=== PATIENT | female | born 1985 | race Native Hawaiian/Other Pacific Islander ===

== ENCOUNTER 2018-01-26 11:49 | Emergency (ER) | payer OTHER ==
[2018-01-26 12:11] VITALS: BMI 31.8
[2018-01-26 13:14] LABS: SQUAMOUS EPITHIAL < 1 /hpf (0-5); URINE BACTERIA RARE (<OCC); URINE BILIRUBIN NEGATIVE (NEGATIVE); URINE BLOOD NEGATIVE (NEGATIVE); URINE CLARITY CLOUDY (Clear); URINE COLOR YELLOW (YELLOW); URINE GLUCOSE (UA) 150 mg/dL (Normal); URINE LEUKOCYTE ESTERASE NEG Leu/uL (Negative); URINE PROTEIN NEGATIVE (NEGATIVE); URINE UROBILINOGEN 0.2-1.0 mg/dL (0.2-1.0)
--- NOTE | 2018-01-26 14:05 | OBDCSUM ---
Datetime: 01/26/2018 12:43 Discharged to, Provider: Home Follow up at, Provider: DR. Bustos Disch Instr Activity: Normal activity Disch Instr Diet: Regular Discharge Time: 01/26/2018 12:45 Follow up in weeks, Provider: 3 weeks Disch Referrals: None Discharge Diagnosis Prov Other: no evidence of vaginal bleeding
--- NOTE | 2018-01-26 14:05 | OBHP ---
Datetime: 01/26/2018 12:30 IP Adm Impression: , intrauterine ; No Active Labor; Intact Membranes IP Admit Plan: Discharge home Admit Comment, IP Provider: [id number] IUP at 31w noticed blood when she wiped after uriating/unsure i f it was from vagina. No pain. No meds taken. PMH: denies PSH denies NKA POBH: PGYNH: no STD PSoH: denies smoking ETOH drugs A: IUP at 31w no evidence of VB PLAN: check UA ADD: at 14:00pm, I rev;d labs, called pt...no need to take cephalexin..but shcedule 3h GTT for glu cosuria Abdomen - PN: Normal Thyroid - PN: Normal Neurologic - PN: Normal HEENT - PN: Normal General - PN: Normal FHR - Baseline A Provider: 150 Membranes, Provider: Intact Contraction Comments Provider: 0 Pool Provider: Negative IP Hx Assessment: The History has been Reviewed and is Current EGA AdmitDate IP: 31.6 IP Chief Complaint: Vaginal bleeding NICHD Variability Prov Fetus A: Moderate 6-25bpm NICHD Accel Fetus A IP Provider: 15X15 FHR Category Provider Fetus A: Category I Dilatation, Provider: 0 Genitourinary Exam: Normal
[2018-01-26 18:06] VITALS: BP 113/70; PULSE 82; O2SAT 99
== END 2018-01-26 13:00 | disposition home or self-care (01) ==
LOC: H.EROB2 11:49 → H.EROB 12:10 → H.EROB2 13:00
DX: O46.93 Antepartum hemorrhage, unspecified, third trimester (principal); Z3A.31 31 weeks gestation of pregnancy

== ENCOUNTER 2018-03-23 09:27 | Inpatient (IN) | payer OTHER ==
--- NOTE | 2018-03-23 10:49 | OBADHP ---
Datetime: 03/23/2018 10:15 IP Chief Complaint Other: blood from vagina Admit Comment, IP Provider: 33yo IUP at 39w GDMA1 (noncompliant) c/o episode VB this morning. some CTX pain. She called yesterday to the office and was told to ocme in for possbie ROM. She did n ot come in. She didn not hav continued leaking - more described mucous more than liquid Prental care: CP Dr Bustos - GDMA1 PMH: denies PSH: denies NKA PsoH: lives with POBGYNH: G1; no STD A: Iup at 39w unfavorable cervix GDMA1 PLAN: Discussoin with pt and her about condition, IOL, meds, pain management, labor,delive ry and care...they understand and agree to start with Cytotec Pelvic Type - PN: Adequate Extremities - PN: Normal Abdomen - PN: Normal Back - PN: Normal Breast - PN: Not Done Lungs - PN: Normal Heart - PN: Normal Thyroid - PN: Normal Neurologic - PN: Normal HEENT - PN: Normal General - PN: Normal Presentation-Admit: Vertex FHR - Baseline A Provider: 150 Membranes, Provider: Intact Pool Provider: Negative IP Hx Assessment: The History has been Reviewed and is Current IP Chief Complaint: Uterine contractions; Suspected ruptured membranes; Vaginal bleeding NICHD Variability Prov Fetus A: Moderate 6-25bpm NICHD Accel Fetus A IP Provider: 15X15 FHR Category Provider Fetus A: Category I NICHD Decel Fetus A IP Provider: None Dilatation, Provider: 1-2 Effacement, Provider: 50 Station, Provider: -2 Genitourinary Exam: Normal DTRs - PN: Normal EGA AdmitDate IP: 39.6 IP Adm Impression: Term, intrauterine ; No Active Labor; Intact Membranes IP Admit Plan: Admit to unit; Initiate labor induction protocol Datetime: 01/26/2018 12:30 Contraction Comments Provider: 0
[2018-03-23 11:37] LABS: BASO % 0.4 % (0.0-2.0); EOS % 0.5 % (0.0-4.0); HEMOGLOBIN 11.8 g/dL (12.0-16.0); LYMPH # 1.4 K/uL (1.0-4.3); LYMPH % 15.9 % (20.0-40.0); MEAN CELL VOLUME 83.7 fl (81.0-99.0); MEAN CORPUSCULAR HEMOGLOBIN 27.8 pg (27.0-31.0); MEAN CORPUSCULAR HGB CONC 33.2 g/dL (33.0-37.0); MEAN PLATELET VOLUME 8.8 fl (7.2-11.7); MONO # 0.6 K/uL (0.0-0.8); MONO % 6.3 % (0.0-10.0); NEUT % 76.9 % (50.0-75.0); RBC 4.23 Mil/uL (3.80-5.20); RED CELL DISTRIBUTION WIDTH 14.8 % (11.5-14.5); WHITE BLOOD COUNT 9.1 K/uL (4.8-10.8)
[2018-03-23] MEDS ORDERED: Lactated Ringer's 1,000 ML IV SCH (19:45)
[2018-03-23] MEDS: Lactated Ringer's 1,000 ML IV SCH ×2 (19:50→20:55)
[2018-03-23] MEDS ORDERED: Fentanyl/Bupivacaine HCl 250 ML EPI ONE (20:59)
--- NOTE | 2018-03-23 23:52 | OBPN ---
Datetime: 03/23/2018 23:45 IP Progress Impression: Normal progression of labor; Reactive non-stress test IP Informed Consent Obtain: Vaginal Delivery; Risks, Benefits and Alternatives Discussed IP Progress Plan: Augmentation; Anticipate Vaginal Delivery Pool Provider: Negative Membranes, Provider: Intact Contraction Comments Provider: 2-4m FHR - Baseline A Provider: 145 IP Progress Note Comment: Notified earlier that she was 4-5cm after she c/o pain and wanted epidural She feels much better now - 'more peaceful' A: Active phase of labor - slow pogress from irregular CTX S/P epidural GDMA1 controlled PLAN: Discussion with pt...will start Pitocin augmentation Vital Signs Provider: Reviewed; Within Normal Limits NICHD Accel Fetus A IP Provider: 15X15 FHR Category Provider Fetus A: Category I NICHD Variability Prov Fetus A: Moderate 6-25bpm Dilatation, Provider: 5-6 Effacement, Provider: 80 Station, Provider: -1 NICHD Decel Fetus A IP Provider: None Datetime: 03/23/2018 10:15 Presentation-Admit: Vertex
[2018-03-24] MEDS ORDERED: Lidocaine 2% Inj (20ml) ONE (05:44)
[2018-03-24] MEDS ORDERED: Benzocaine/Menthol SPRAY TOP PRN ×2 (09:03→11:12)
[2018-03-24] MEDS ORDERED: Multivitamin With Minerals Tab PO SCH (09:15)
[2018-03-24] MEDS ORDERED: Oxytocin 30 units/LR 500ML 30 U/500 ML BAG IV ONE (09:30)
[2018-03-25 06:20] LABS: BASO % 0.2 % (0.0-2.0); EOS % 0.3 % (0.0-4.0); HEMOGLOBIN 9.2 g/dL (12.0-16.0); LYMPH # 1.9 K/uL (1.0-4.3); LYMPH % 13.5 % (20.0-40.0); MEAN CELL VOLUME 84.2 fl (81.0-99.0); MEAN CORPUSCULAR HEMOGLOBIN 26.8 pg (27.0-31.0); MEAN CORPUSCULAR HGB CONC 31.8 g/dL (33.0-37.0); MEAN PLATELET VOLUME 8.4 fl (7.2-11.7); MONO # 0.8 K/uL (0.0-0.8); MONO % 5.8 % (0.0-10.0); NEUT # 11.1 K/uL (1.8-7.0); NEUT % 80.2 % (50.0-75.0); RBC 3.42 Mil/uL (3.80-5.20); RED CELL DISTRIBUTION WIDTH 15.5 % (11.5-14.5); WHITE BLOOD COUNT 13.9 K/uL (4.8-10.8)
[2018-03-25] MEDS: Multivitamin With Minerals Tab PO SCH (08:27)
[2018-03-26] MEDS: Multivitamin With Minerals Tab PO SCH (08:47)
[2018-03-26] MEDS ORDERED: Lansinoh for Breast Feeding Mothers TP ONE (09:09)
--- NOTE | 2018-03-26 10:00 | OBDCSUM ---
Datetime: 03/26/2018 09:59 Discharged to, Provider: Home Follow up at, Provider: OB Disch Instr Activity: Normal activity Disch Instr Diet: Regular Discharge Instructions, Provider: Routine instructions given Discharge Diagnosis, Provider: Term Delivered Discharge Time: 03/26/2018 09:59 Follow up in weeks, Provider: 6 wks Disch Referrals: None Contraception discussed, Prov: Yes
--- NOTE | 2018-03-26 10:00 | OBPPN ---
Datetime: 03/26/2018 09:58 PP Pain Prov: Within normal limits PP Nausea Prov: Denies PP Flatus Prov: Yes PP Breasts Prov: Normal PP Heart Prov: Normal PP Lungs Prov: Normal PP Abdomen/Uterus Prov: Normal PP Lochia Prov: Normal PP Vulva/Perineum Prov: Normal PP CVA Tenderness Prov: Normal PP Extremities Prov: Normal PP Comments Phys Exam Prov: Fundus firm under umbilicus PP Impression Prov: Normal progression PP Plan Prov: Continue present management PP Progress Note Prov: Patient denies CP, no SOB, no N/V, tolerating PO diet, ambulating/voiding wel l, mild lochia A/P PPD #2 1. discharge pt home 2. Discharge instructions reviewed IP PP Procedures: None Vital Signs Provider PP: Reviewed; Within Normal Limits
--- NOTE | 2018-03-26 10:39 | OBDS ---
DELIVERY PERSONNEL Delivery Doctor: Isa Bustos DO Die Keeper: Amy Goldstein RN Anesthesiologist: Leeann Garcia MD Resident: MATERNAL INFORMATION Delivery Anesthesia: Local; Epidural Medications in Delivery: PITOCIN 30 UNITS IN LR Estimated Blood Loss (ml): 200 Placenta Cultured: No Maternal Complications: Maternal Fever Provider Comments: Over intact perineum, of live male . was crying spontaneously. Cord was clamped and cut by father. was placed on mother's chest for skin to skin. Peds was in attendance ) thin mec/GDMA/Temp reported 100.0 andfetal tachy before delivery ). Placenta was de liveed intact spontaneously. EBL 200cc she remained stable LABOR SUMMARY EDC: 03/24/2018 00:00 No. Babies in Womb: 1 Attempted: No Labor Anesthesia: Epidural LABOR INFORMATION Onset of Labor: 03/23/2018 23:40 Complete Dilatation: 03/24/2018 05:35 Cervical Ripening Agents: Cytotec @ (Annotations: 50 mcg given po as ordered) Oxytocin: Augmentation Group B Beta Strep: Negative Steroids Given: None Reason Steroids Not Administered: Not Applicable MEMBRANES Membranes Rupture Method: Spontaneous Rupture of Membranes: 03/24/2018 04:25 Length of Rupture (hrs): 2.53 Amniotic Fluid Color: Light Meconium Amniotic Fluid Amount: Moderate Amniotic Fluid Odor: Normal STAGES OF LABOR Stage 1 hrs: 5 Stage 1 min: 55 Stage 2 hrs: 1 Stage 2 min: 22 Stage 3 hrs: 0 Stage 3 min: 17 Total Time in Labor hrs: 7 Total Time in Labor min: 34 VAGINAL DELIVERY Episiotomy: None Laceration Extension: Second Degree Laceration Type: Perineal Laceration Repair Note: 1% Lidocaine infiltrated (5cc). 2nd degree perineal laceration repaired wit h 2.0 Vicryl Rapide suture and 3.0 vicryl rapdie suture (posterior interupted) Initial Vag Sponge Count: 10 Final Vag Sponge Count: 10 Initial Vag Sharps Count: 5 Final Vag Sharps Count: 5 Sponge Count Correct: Yes Sharps Count Correct: Yes Count Comment: one syringe/10 lap pads/5 suture needles (3 used) BABY A INFORMATION Delivery Date/Time: 03/24/2018 06:57 Method of Delivery: Vaginal Born in Route : No : N/A Forceps: N/A Vacuum Extraction: N/A Shoulder Dystocia : No SHOULDER DYSTOCIA BABY A Delivery Date/Time: 03/24/2018 06:57 PRESENTATION/POSITION BABY A Presentation: Cephalic Cephalic Presentation: Vertex Vertex Position: Left Occipital Anterior Breech Presentation: N/A PLACENTA INFORMATION BABY A Placenta Delivery Time : 03/24/2018 07:14 Placenta Method of Delivery: Spontaneous Placenta Status: Delivered SCORES BABY A Heart Rate 1 min: >100 bpm Resp Effort 1 min: Good Cry Reflex Irritability 1 min: Cough or Sneeze or Pulls Away Muscle Tone 1 min: Active Motion Color 1 min: Body [place], Extremities Blue SCORE 1 MIN: 9 Heart Rate 5 min: >100 bpm Resp Effort 5 min: Good Cry Reflex Irritability 5 min: Cough or Sneeze or Pulls Away Muscle Tone 5 min: Active Motion Color 5 min: Body [place], Extremities Blue SCORE 5 MIN: 9 INFANT INFORMATION BABY A Gestational Age at Delivery: 40.0 Gestational Status: Term Outcome : Liveborn Infant Condition : Stable Sex: Male IDENTIFICATION/MEDS BABY A ID Band Number: [id number] ID Band Location: Left Leg; Left Arm WEIGHT/LENGTH BABY A Birthweight (gms): 3905 Weight (lb): 8 Infant Weight (oz): 10 Length Inches: 20.00 Infant Length cms: 50.8 CORD INFORMATION BABY A No. Cord Vessels: 3 Nuchal Cord : N/A Cord Blood Taken: Yes ASSESSMENT BABY A Complications: None Physical Findings at Delivery: Within Normal Limits Infant Respirations: Appears Normal Movie Shot Cameraman/ALS Called : Yes Infant Care By: dr winslow / amy goldstein rn Transferred To: Remains with Mother RESUSCITATION BABY A Resuscitation Effort: Tactile Stimulation
--- NOTE | 2018-03-26 10:52 | OBDS ---
DELIVERY PERSONNEL Delivery Doctor: Isa Bustos DO Relocation Commissioner: Amy Goldstein RN Anesthesiologist: Leeann Garcia MD Resident: MATERNAL INFORMATION Delivery Anesthesia: Local; Epidural Medications in Delivery: PITOCIN 30 UNITS IN LR Estimated Blood Loss (ml): 200 Placenta Cultured: No Maternal Complications: Maternal Fever Provider Comments: Over intact perineum, of live male . was crying spontaneously. Cord was clamped and cut by father. was placed on mother's chest for skin to skin. Peds was in attendance ) thin mec/GDMA/Temp reported 100.0 andfetal tachy before delivery ). Placenta was de liveed intact spontaneously. EBL 200cc she remained stable LABOR SUMMARY EDC: 03/24/2018 00:00 EDC: 03/24/2018 00:00 No. Babies in Womb: 1 Attempted: No Labor Anesthesia: Epidural LABOR INFORMATION Onset of Labor: 03/23/2018 23:40 Complete Dilatation: 03/24/2018 05:35 Cervical Ripening Agents: Cytotec @ (Annotations: 50 mcg given po as ordered) Cervical Ripening Agents: Cytotec @ (Annotations: 25 mcg given po as ordered) Oxytocin: Augmentation Group B Beta Strep: Negative Group B Beta Strep: Negative Steroids Given: None Reason Steroids Not Administered: Not Applicable MEMBRANES Membranes Rupture Method: Spontaneous Membranes Rupture Method: Spontaneous Rupture of Membranes: 03/24/2018 04:25 Length of Rupture (hrs): 2.53 Amniotic Fluid Color: Light Meconium Amniotic Fluid Color: Light Meconium Amniotic Fluid Color: Light Meconium Amniotic Fluid Amount: Moderate Amniotic Fluid Amount: Moderate Amniotic Fluid Odor: Normal Amniotic Fluid Odor: Normal STAGES OF LABOR Stage 1 hrs: 5 Stage 1 min: 55 Stage 2 hrs: 1 Stage 2 min: 22 Stage 3 hrs: 0 Stage 3 min: 17 Total Time in Labor hrs: 7 Total Time in Labor min: 34 VAGINAL DELIVERY Episiotomy: None Laceration Extension: Second Degree Laceration Type: Perineal Laceration Repair Note: 1% Lidocaine infiltrated (5cc). 2nd degree perineal laceration repaired wit h 2.0 Vicryl Rapide suture and 3.0 vicryl rapdie suture (posterior interupted) Initial Vag Sponge Count: 10 Final Vag Sponge Count: 10 Initial Vag Sharps Count: 5 Final Vag Sharps Count: 5 Sponge Count Correct: Yes Sharps Count Correct: Yes Count Comment: one syringe/10 lap pads/5 suture needles (3 used) BABY A INFORMATION Infant Delivery Date/Time: 03/24/2018 06:57 Method of Delivery: Vaginal Born in Route : No : N/A Forceps: N/A Vacuum Extraction: N/A Shoulder Dystocia : No SHOULDER DYSTOCIA BABY A Delivery Date/Time: 03/24/2018 06:57 PRESENTATION/POSITION BABY A Presentation: Cephalic Presentation: Cephalic Cephalic Presentation: Vertex Vertex Position: Left Occipital Anterior Breech Presentation: N/A PLACENTA INFORMATION BABY A Placenta Delivery Time : 03/24/2018 07:14 Placenta Method of Delivery: Spontaneous Placenta Status: Delivered SCORES BABY A Heart Rate 1 min: >100 bpm Resp Effort 1 min: Good Cry Reflex Irritability 1 min: Cough or Sneeze or Pulls Away Muscle Tone 1 min: Active Motion Color 1 min: Body Pump Back, Extremities Blue SCORE 1 MIN: 9 Heart Rate 5 min: >100 bpm Resp Effort 5 min: Good Cry Reflex Irritability 5 min: Cough or Sneeze or Pulls Away Muscle Tone 5 min: Active Motion Color 5 min: Body Pump Back, Extremities Blue SCORE 5 MIN: 9 INFANT INFORMATION BABY A Gestational Age at Delivery: 40.0 Gestational Status: Term Infant Outcome : Liveborn Condition : Stable Infant Sex: Male IDENTIFICATION/MEDS BABY A ID Band Number: [id number] ID Band Location: Left Leg; Left Arm WEIGHT/LENGTH BABY A Birthweight (gms): 3905 Infant Weight (lb): 8 Infant Weight (oz): 10 Infant Length Inches: 20.00 Infant Length cms: 50.8 CORD INFORMATION BABY A No. Cord Vessels: 3 Nuchal Cord : N/A Cord Blood Taken: Yes ASSESSMENT BABY A Infant Complications: None Physical Findings at Delivery: Within Normal Limits Infant Respirations: Appears Normal Mission Planner/ALS Called : Yes Care By: dr winslow / amy goldstein rn Transferred To: Remains with Mother RESUSCITATION BABY A Resuscitation Effort: Tactile Stimulation
[2018-03-26 23:32] VITALS: BP 124/78; PULSE 101; RESP 20; TEMP 98; O2SAT 96
--- NOTE | 2018-03-28 11:59 | OBPPN ---
Datetime: 03/25/2018 11:52 PP Pain Prov: Within normal limits PP Nausea Prov: Denies PP Flatus Prov: Yes PP BM Prov: Yes PP Breasts Prov: Normal PP Heart Prov: Normal PP Lungs Prov: Normal PP Abdomen/Uterus Prov: Normal PP Lochia Prov: Normal PP Vulva/Perineum Prov: Normal PP CVA Tenderness Prov: Normal PP Extremities Prov: Normal PP C/S Incision Prov: Not Applicable PP Comments Phys Exam Prov: Abdomen soft, nontender, nondistended Uterus firm, below umbilicus No deep calf tenderness bilaterally PP Progress Note Prov: day #1 status post , patient recovering well Check CBC Regular diet Patient out of bed and ambulating Pain control Vital Signs Provider PP: Reviewed; Within Normal Limits
== END 2018-03-26 17:11 | disposition home or self-care (01) | DRG 774 ==
LOC: H.EROB2 09:27 → H.L&D 09:50 → H.EROB2 10:39 → H.L&D 10:40 → H.OB/GYN 03-24 11:00
PROVIDERS: ADMIT Obstetrics & Gynecology; ATTEND Obstetrics & Gynecology
PROC: 4A1HXCZ Monitoring of Products of Conception, Cardiac Rate, External Approach (ICD-10-PCS; 2018-03-23)
PROC: 10E0XZZ Delivery of Products of Conception, External Approach (ICD-10-PCS; principal; 2018-03-24)
PROC: 0KQM0ZZ Repair Perineum Muscle, Open Approach (ICD-10-PCS; 2018-03-24)
DX: O24.420 Gestational diabetes mellitus in childbirth, diet controlled (principal); O75.2 Pyrexia during labor, not elsewhere classified; O48.0 Post-term pregnancy; O70.1 Second degree perineal laceration during delivery; Z3A.40 40 weeks gestation of pregnancy; Z37.0 Single live birth; Z91.19 Patient's noncompliance with other medical treatment and regimen